=== PATIENT | female | born 1955 ===

== ENCOUNTER 2024-04-04 10:44 | Outpatient (CLI) | payer MEDICARE, SELFPAY ==
--- NOTE | 2024-04-04 10:51 | XR_ITS ---
WS: [id number] Examination: XR hip RT 2-3V wo/w pel* [id number] Reason for Exam: right hip pain Date: 04/04/2024 Comparison: None. Findings: Severe arthritic deformity of the right hip is noted. The joint space is markedly narrowed. There is mild flattening of the lateral femoral head. Large osteophytes of the acetabulum and femoral head are present with sclerosis and cystic change. There is no displaced fracture or dislocation XR/XR hip RT 2-3V wo/w pel* [id number] Impression: Severe arthritic deformity of the right hip is noted.
== END 2024-04-04 10:45 | disposition home or self-care (01) ==
LOC: RAD 10:50
PROVIDERS: PCP Nurse Practitioner Family; Visit Provider Nurse Practitioner Family
DX: M16.11 Unilateral primary osteoarthritis, right hip (principal); M25.751 Osteophyte, right hip
CPT/HCPCS: 73502

== ENCOUNTER → 2024-04-18 08:48 | Outpatient (BNVA) | payer MEDICARE, SELFPAY | PROVIDERS: PCP Nurse Practitioner Family; Visit Provider Specialist | DX: M16.11 Unilateral primary osteoarthritis, right hip (principal) | CPT/HCPCS: 99204 ==

== ENCOUNTER 2024-05-17 13:19 | Outpatient (CLI) | payer MEDICARE, SELFPAY ==
--- NOTE | 2024-05-17 13:21 | XR_ITS ---
WS: [id number] SCREENING DEXA SCAN [facility] CLINICAL INFORMATION: ASYMPTOMATIC MENOPAUSAL STATE COMPARISON: None. FINDINGS: The L1-L4 bone mineral density measures 1.347 g/cm2. This corresponds to a T score score of 1.4 and Z score of 2.3. Left forearm bone mineral density measures 0.84. This corresponds to a T score of -0.3 and Z score of 1.4. Right femoral neck bone mineral density measures 0.995. This corresponds to a T score -0.1 of and Z s core of 0.8. XR/XR DEXA axial skeleton* [id number] IMPRESSION: Normal bone mineralization lumbar spine and RIGHT femoral neck. Normal bone min eralization LEFT forearm. Patient's FRAX calculated 10 year probability for major osteoporotic fracture i s 7.2% and osteoporotic hip fracture is 0.4%.
== END 2024-05-17 13:20 | disposition home or self-care (01) ==
LOC: RAD 13:20
PROVIDERS: PCP Nurse Practitioner Family; Visit Provider Nurse Practitioner Family
DX: Z13.820 Encounter for screening for osteoporosis (principal); Z78.0 Asymptomatic menopausal state
CPT/HCPCS: 77080

== ENCOUNTER 2024-05-30 11:43 | Outpatient (CLI) | payer MEDICARE, SELFPAY ==
[2024-05-30 12:02] LABS: Basophils # 0.1 10^3/uL (0.0-0.1); Basophils % 0.7 %; Eosinophils # 0.6 10^3/uL (0.0-0.8); Lymphocytes # 1.4 10^3/uL (0.8-4.8); Lymphocytes % 20.8 %; Mean Corpuscular HGB Conc 31.2 g/dL (30-55); Mean Corpuscular Hemoglobin 28.4 pg (27-33); Mean Corpuscular Volume 90.9 fl (85-98); Mean Platelet Volume 9.7 fL (7.4-10.4); Monocytes # 0.7 10^3/uL (0.2-0.9); Monocytes % 9.6 %; Neutrophils # 4.04 10^3/uL (1.8-7.7); Neutrophils % 59.6 %; Nucleated Red Blood Cells % 0 %; Platelet Count 287 10^3/cmm (157-399); Red Blood Count 4.51 10^6/uL (3.85-5.65); Red Cell Distribution Width 13.3 % (12.1-15.1); White Blood Count 6.78 10^3/uL (3.29-11.43)
[2024-05-30 12:25] LABS: Alanine Aminotransferase 49 U/L (0-33); Albumin Level 4.2 g/dL (3.5-5.2); Alkaline Phosphatase 144 U/L (35-105); Anion Gap 13.3 (5-19); Aspartate Amino Transferase 39 U/L (0-32); Blood Urea Nitrogen 12 mg/dL (8-23); Calcium 8.9 mg/dL (8.5-10.5); Carbon Dioxide 28 mmol/L (22-29); Chloride 104 mmol/L (98-107); Globulin 3.2 g/dL (1.3-4.6); Glomerular Filtration Rate 83.2 mL/min (90-130); Glucose 99 mg/dL (65-115); Osmolality Calculated 292 mOsm/kg (285-295); Potassium 4.3 mmol/L (3.5-5.1); Sodium 141 mmol/L (136-145); Total Bilirubin 0.3 mg/dL (0.15-1.2); Total Protein 7.4 g/dL (6.6-8.7)
[2024-05-30 13:12] LABS: Bilirubin Urine Negative (Negative); Blood Urine Negative (Negative); Glucose Urine UA Negative (Normal); Ketones Urine Negative (Negative); Leukocyte Esterase Urine Trace (Negative); Nitrate Urine Negative (Negative); Protein Urine Negative (Negative); Specific Gravity, Urine 1.012 (1.005-1.030); Urine Appearance Clear (CLEAR); Urine Color Yellow (Yellow); Urobilinogen Urine 0.2 mg/dL (Negative)
[2024-05-30 13:17] LABS: Add Urine Microscopic? YES; Bacteria Urine None Seen /hpf; Hyaline Casts Urine 0-4 /lpf; RBC Urine 0-2 /hpf (0-2); Squamous Epithelial Cell Urine 0-5 /hpf (0-5); WBC Urine 0-5 /hpf (0-5)
[2024-05-30 13:19] LABS: Add Urine Culture? No
== END 2024-05-30 11:44 | disposition home or self-care (01) ==
LOC: LAB 11:45
PROVIDERS: PCP Nurse Practitioner Family; Visit Provider Specialist
DX: Z01.818 Encounter for other preprocedural examination (principal)
CPT/HCPCS: 36415; 80053; 81001; 85025

== ENCOUNTER → 2024-06-07 09:33 | Outpatient (BNVA) | payer MEDICARE, SELFPAY | PROVIDERS: PCP Nurse Practitioner Family; Visit Provider Family Medicine | DX: Z01.818 Encounter for other preprocedural examination (principal) | CPT/HCPCS: 93005 ==

== ENCOUNTER 2024-06-14 15:24 | Observation (INO) | payer MEDICARE, SELFPAY ==
[2024-06-14] VITALS (14 sets, daily range): BP systolic 104–155; BP diastolic 61–91; PULSE 66–90; RESP 10–21; TEMP 35.6–36.4; O2SAT 95–100; BMI 36.1
[2024-06-14] MEDS: sodium chloride 0.9% 1,000 ML 30 ML IV (11:24)
[2024-06-14] MEDS: gabapentin 300 mg Capsule PO (11:26)
[2024-06-14] MEDS: acetaminophen 1,000 MG/100 ML PIGGYBACK 400 MG IV ×2 (11:26→17:50)
[2024-06-14] MEDS: CELEcoxib 200 mg Capsule 400 MG PO (11:27)
--- NOTE | 2024-06-14 11:56 | W.PM.OPSUD ---
Surgery/Procedure H&P Update DATE OF PROCEDURE: June 14, 2024 DATE H&P PERFORMED: 06/07/24 H&P UPDATE INFORMATION: I have reviewed H&P completed within last 30 days, I have examined patient prior to procedure, No changes to prior documentation and H&P is in [facility] EMR on date indicated PLANNED PROCEDURE: Operation Date: 06/14/24 12:20 Proposed Procedures p Total Hip Arthroplasty(Right) - Cynthia Enriquez MD Related Problem List Diagnoses (1) Primary osteoarthritis of right hip:
--- NOTE | 2024-06-14 12:26 | ANES.PREANE2 ---
Pre-Anesthetic Assessment Height/Weight: Height 1.57 m Weight 87.543 kg Temp Pulse Resp BP Pulse Ox O2 Del Method 97.1 F L 72 16 155/91 97 Room Air 06/14/24 11:04 06/14/24 11:04 06/14/24 11:04 06/14/24 11:04 06/14/24 11:04 06/14/24 11:04 Operation Date: 06/14/24 12:20 Proposed Procedures p Total Hip Arthroplasty(Right) - Cynthia Enriquez MD Familial anesthetic complications: None Was Beta Linda taken within 24 hours: N/A Was Clonidine taken within 24 hours: N/A Last intake: Intake Last Liquid Date 06/13/24 Last Liquid Time 22:00 Last Solid Date 06/13/24 Last Solid Time 18:30 Social No alcohol and No tobacco Exam No alert, No oriented x 3, No clear to auscultation bilaterally and No regular rate & rhythm Airway Mallampati: Class II Dentition: full (permanent dental work in place) Metabolic Thyroid Disease Anesthetic Plan ASA status: 2 Anesthesia: Regional (specify below) Risk of > 500 ml blood loss (7ml/kg in children): Yes, adequate IV access and fluids planned Medications/Allergies Home Medications Medication Instructions Recorded Confirmed Last Taken Type ascorbic acid (vitamin C) 250 mg 250 mg PO DAILY 04/18/24 06/14/24 06/13/24 History tablet calcium-magnesium 750 mg-465 mg 750 tab PO DAILY 04/18/24 06/14/24 06/13/24 History tablet meloxicam 15 mg tablet 15 mg PO DAILY #30 tabs 04/18/24 06/14/24 Unknown Rx multivitamin 1 tab PO DAILY 04/18/24 06/14/24 06/13/24 History vitamin B complex 1 tab PO DAILY 04/18/24 06/14/24 06/13/24 History zinc gluconate 100 mg tablet 100 mg PO DAILY 04/18/24 06/14/24 06/13/24 History thyroid (pork) 60 mg tablet 60 mg PO DAILY 06/07/24 06/14/24 06/13/24 History ([place] Thyroid) Allergies Allergy/AdvReac Type Severity Reaction Status Date / Time No Known Allergies Allergy Verified 06/13/24 11:21 Current Medications Generic Name Dose Route Start Last Admin Trade Name Freq PRN Reason Stop Dose Admin Sodium Chloride 1,000 mls @ 30 mls/hr 06/14/24 10:45 06/14/24 11:24 Sodium Chloride 0.9% IV 06/15/24 10:44 30 mls/hr .Q24H CHRIS Administration PFSH Anesthesia Social History Smoking and tobacco/nicotine status: never used tobacco/nicotine Alcohol intake: current Alcohol intake frequency: few times a month Marital status: Number of children: 2 Data Anesthesia Cardiac Studies: No Data to Display
[2024-06-14] MEDS: ceFAZolin 2,000 mg SDV 2000 MG IVP (13:09)
[2024-06-14] MEDS: tranexamic acid 1,000 mg/10mL SDV 1000 MG IV (13:58)
[2024-06-14] MEDS: ceFAZolin 1,000 mg SDV 1000 MG IRRIGATION (14:16)
[2024-06-14] MEDS: vancomycin 1,000 MG SDV 1000 MG XX (14:17)
--- NOTE | 2024-06-14 16:20 | XRR_ITS ---
PROCEDURE INFORMATION: Exam: XR Pelvis Exam date and time: 06/14/2024 4:23 PM Age: 68 years old Clinical indication: Device placement; Other: Lashell; Prior surgery; Surgery date: Post-operative (0-2 days); Additional info: S/P lashell, low ap pelvis TECHNIQUE: Imaging protocol: Radiologic exam of the pelvis. Views: 1 or 2 view. COMPARISON: CR XR hip RT 2-3V wo/w pel* [id number] 04/04/2024 10:56 AM FINDINGS: Tubes, catheters and devices: Hardware appears intact without complication. Bones/joints: Bilateral total hip arthroplasties. Anatomic alignment. No periprosthetic fracture. Soft tissues: Subcutaneous gas and skin closure letha overlying the right hip, compatible with recent prior surgery. XR/XR pelvis 1-2V* [id number] IMPRESSION: Bilateral total hip arthroplasties without apparent complication.
--- NOTE | 2024-06-14 16:32 | P.OP_ITS ---
Operative Report Date of procedure: June 14, 2024 Pre-op diagnosis: Severe degenerative osteoarthritis right hip Post-op diagnosis: Severe degenerative osteoarthritis right hip Post-op findings: Severe degenerative osteoarthritis with large osteophytes Procedure done: Right total hip arthroplasty Implants: The [place] total hip system with a size 52 mm by E alpha code Trident II Tritanium solid back acetabular shell and an MDM liner size 42 mm inner diameter by E alpha code.? A size 4 Accolade II 127? neck angle hip stem with a size 28 mm x +0 mm femoral head and a christian MDM X3 insert size 42E Specimens removed/disposition: Bone, disposed of Surgeon: Cynthia Enriquez MD Manager Retirement: Neeru Flores Manager Retirement: Services of the nurse practitioner regional administrative assistant were required for positioning, manipulation of the leg during the surgical procedure, retraction, and completion of the surgical procedure. Anesthesia: General (Intubated following conversion from spinal with MAC prior to beginning the surgical procedure, ASA 2) Estimated blood loss (mL): 260 IV fluids (mL): 1,500 Urine output (mL): 350 Complications: None Findings: Severe degenerative osteoarthritis with large osteophytes. Hip was stable at 90 degrees of flexion with 80 degrees of internal rotation and 30 degrees of adduction. It was also stable to toe hang and external rotation Condition: stable Disposition: PACU (Then to floor for postoperative rehabilitation and pain management) Brief History: This 68-year-old woman presents to the clinic for evaluation of right hip pain. The patient discussed having pain for approximately 3 years and was ambulating with a cane for longer distances or on uneven surfaces. Patient had significant limitations in her activities of daily living. She had taken anti- inflammatories as well as prednisone. Patient had a left total hip arthroplasty in [place] in 2014, and did well following that. Current pain is in the groin and sometimes into her back. Patient wished to proceed with right total hip a rthroplasty. Risks and complications were discussed with her, and consents were signed. Procedure: Patient was brought to the operating theater.? She was transferred to the operating room table and subsequently administered a spinal anesthesia with MAC, ASA 2, but this was converted to a general anesthesia secondary to the patient having coughing while in a full lateral position, and there was concern for possible aspiration risk.? Following administration of adequate anesthesia, the patient was placed in full lateral position and held in position with a pegboard.? The patient's right lower extremity was then prepped and draped in usual fashion utilizing DuraPrep.? It was draped free.? Following prepping and draping, a surgical pause was performed.? At the time of surgical pause, we identified the site and side of surgery.? We also identified the patient and preoperative surgical markings.? Additionally, leg lengths were marked after draping.? Confirmation was made of equipment availability.? The patient's preoperative IV antibiotic, Ancef 2 g, and TXA administration was confirmed as well.? X-rays were also reviewed. Following the surgical pause, an incision was made centering over the patient's greater trochanter continuing proximally and distally as necessary to allow access to the hip joint.? Dissection continued through skin and soft tissues using a scalpel, and hemostasis was obtained using electrocautery. The tensor fascia hernan was identified and incised longitudinally, and the tensor fascia hernan was noted to be very tight. Exposure was difficult secondary to this. The patient also was large in the subcutaneous tissues of the thigh making exposure extremely difficult as well. Sciatic nerve was identified and protected throughout the surgical procedure.? A Charnley U retractor was placed after the tensor fascia hernan had been incised longitudinally, and the sciatic nerve had been identified.? The hip was internally rotated, and the piriformis muscle was identified and tagged. Piriformis muscle along with the remaining short external rotators were then incised from the posterior aspect of the hip joint.? These were retracted posteriorly.? The capsule was entered in a T-type fashion with the edges being tagged. Posterior osteophytes were removed from the acetabulum, and subsequently the hip was dislocated.? Following hip dislocation, a femoral neck osteotomy was accomplished in the appropriate position.? The head was measured, but it was quite deformed.? Subsequently, it was disposed of.? We then evaluated the acetabulum. The femur was retracted anteriorly.? Soft tissues were retracted, and the labrum was removed.? We then began reaming.? Once the femoral head was removed, there was noted to be significant loss of cartilage over the head with the previously noted deformity and within the acetabulum.? We reamed to a size 51mm to allow for a size 52 mm acetabular shell.? The acetabular component, solid back shell, was impacted into position. The cup was stable. The MDM liner was then impacted into position with care being taken to assure it seated appropriately.? It was noted that the acetabular component matched the bony anatomy.? The cup was noted to seat nicely and had good fixation upon impact. Attention was directed to the proximal femur.? The proximal femur was lifted out of the wound.? A canal finder was passed after the box chisel. We then began broaching. We broached sequentially and had excellent fit and fill with the size 4 broach. ? A trial reduction was attempted with a +0 mm femoral head.? With this construct, the hip was stable, and leg length was felt to be equal.? With this in place, we had the above stabilities.? This was felt to be excellent stability. Therefore, trial components were removed after the hip was dislocated.? The size 4 Accolade II 127? neck angle stem was impacted into position without difficulty and onto this was placed a +0 mm x 28 mm femoral head which had been assembled into the MDM insert size 42E.? With a +0 mm femoral head, we had the above-noted stability.? The stem was noted to seat nicely prior to placement of the femoral head.? The wound was copiously irrigated with 20 mL of Betadine and 500 mL of normal saline mixed together.? Subsequently, we suctioned this out and irrigated the wound copiously with lactated Ringer's.? At this time, with all components in appropriate position, the hip was reduced.? Following reduction of the prosthesis once again, we confirmed the stability of the hip.? Leg lengths were also felt to be satisfactory. Being satisfied with the prosthesis, attention was directed to closure.? Closure was accomplished with 0 Vicryl in the capsular tissues.? Piriformis was reattached with 0 Vicryl as well.? Tensor fascia hernan was closed with 0 Vicryl in an interrupted fashion.? The subcutaneous tissues were closed with a combination of 0 Vicryl and 2-0 Monocryl. Vancomycin powder and a Gelfoam thrombin mixture was placed into the wound as well.? The skin was closed with skin letha followed by Silverlon dressing.? The patient was placed in an abduction pillow.? She was returned the Recovery Room in a satisfactory condition and will be discharged to the floor for postoperative rehabilitation and pain management.? There were no complications or specimens. Related Problem List Diagnoses (1) Primary osteoarthritis of right hip:
[2024-06-14] MEDS: iron polysaccharide complex 150 mg Capsule PO (17:50)
[2024-06-14] MEDS: calcium carbonate 500 mg Chew Tablet 1000 MG PO (17:50)
[2024-06-14] MEDS: sennosides-docusate Tablet 2 TAB PO (17:50)
[2024-06-14] MEDS: chlorhexidine gluconate 0.12% Btl 473 mL 30 ML MUCOUS MEM ×2 (17:50→21:14)
[2024-06-14] MEDS: mupirocin oint 22 gm 1 APPLIC NASAL (17:51)
[2024-06-14] MEDS: oxyCODONE 5 mg IR Tab/Cap PO (19:55)
[2024-06-14] MEDS: ceFAZolin 2,000 MG in sodium chloride 0.9% (100 ml) 100 ML 200 MG IV (21:13)
[2024-06-14] MEDS: tranexamic acid 1,000 MG/100 ML PREMIX 600 MG IV (23:01)
[2024-06-14] MEDS: ondansetron 2 mg/ML SDV 2 mL 4 MG IVP (23:16)
[2024-06-15] VITALS (8 sets, daily range): BP systolic 100–133; BP diastolic 53–76; PULSE 67–94; RESP 16–18; TEMP 36.4–36.9; O2SAT 90–94
[2024-06-15] MEDS: acetaminophen 1,000 MG/100 ML PIGGYBACK 400 MG IV (00:46)
[2024-06-15 03:41] LABS: Basophils % 0.2 %; Hematocrit 34.1 % (36-47); Lymphocytes # 0.6 10^3/uL (0.8-4.8); Lymphocytes % 4.5 %; Mean Corpuscular HGB Conc 32.3 g/dL (30-55); Mean Corpuscular Hemoglobin 29.3 pg (27-33); Mean Corpuscular Volume 90.9 fl (85-98); Mean Platelet Volume 10.1 fL (7.4-10.4); Monocytes # 0.6 10^3/uL (0.2-0.9); Monocytes % 4.4 %; Neutrophils # 12.02 10^3/uL (1.8-7.7); Neutrophils % 90.4 %; Nucleated Red Blood Cells % 0 %; Platelet Count 268 10^3/cmm (157-399); Red Blood Count 3.75 10^6/uL (3.85-5.65); Red Cell Distribution Width 13.5 % (12.1-15.1); White Blood Count 13.29 10^3/uL (3.29-11.43)
[2024-06-15 04:05] LABS: Anion Gap 16.2 (5-19); Blood Urea Nitrogen 15 mg/dL (8-23); Calcium 8.7 mg/dL (8.5-10.5); Carbon Dioxide 23 mmol/L (22-29); Chloride 103 mmol/L (98-107); Creatinine Clr Calc Pharmacy 69.9542; Glomerular Filtration Rate 71.3 mL/min (90-130); Glucose 152 mg/dL (65-115); Osmolality Calculated 288 mOsm/kg (285-295); Potassium 5.2 mmol/L (3.5-5.1); Sodium 137 mmol/L (136-145)
[2024-06-15] MEDS: ceFAZolin 2,000 MG in sodium chloride 0.9% (100 ml) 100 ML 200 MG IV ×2 (04:42→16:06)
[2024-06-15] MEDS: oxyCODONE 5 mg IR Tab/Cap PO (06:12)
[2024-06-15] MEDS: calcium carbonate 500 mg Chew Tablet 1000 MG PO ×2 (09:46→18:02)
[2024-06-15] MEDS: meloxicam 7.5 mg tablet 15 MG PO (09:46)
--- NOTE | 2024-06-15 09:48 | PC.CHAP ---
Pastoral Care Encounter/Spiritual Assessment Type of Contact [] Declined button cutting machine operator visit [] Patient/Family/Request visit [] Outpatient visit [] Follow-up visit [] Physician referral [] Code/Alert [] Routine visit [] Staff referral [] Actively dying [] Patient sleeping [] Family support [] [] Out of room [] Palliative care [] [x] Receiving care in room [] Pre-surgical visit [] Trauma [] Long length of stay [] ICU visit [] Other: Relational/Emotional Strength [] Patient feels connected with others/family/visitors/staff [] Distress [] Loneliness/isolation [] Abandonment Spirituality of Patient [] Person of Lucila [] Attends Latter Day of their Lucila [] Believes in Prayer [] Reads Bible or Caodaism materials [] There are Spiritual issues to be addressed Dean Interventions [] Prayer [] Active listening [] Non-anxious presence [] Spiritual/emotional support [] Crisis/trauma care [] Spiritual counseling [] Bereavement support [] Provided bereavement packet [] Provided Bible/devotional materials [] Provided toy/stuffed animal, coloring book to patient or family member [] Provided Communion [] Anointing/[place] [] Salvation [] Completed spiritual assessment [] Other: Impact on Illness or Injury [] Angry [] Fearful [] Anxious [] Often cries [] Exhaustion [] Unable to work [] Unable to attend oriental orthodox [] Unable to walk/stand [] Unable to read [] Unable to drive [] Unable to eat/drink [] Unable to sleep [] Unable to be with family [] Patient intubated [] Other: Summary Time spent with patient
[2024-06-15] MEDS: cholecalciferol (vitamin D3) 1,000 unit Tablet 1000 UNIT PO (09:52)
[2024-06-15] MEDS: aspirin 325 mg EC Tablet PO (09:52)
[2024-06-15] MEDS: multivitamin therapeutic Tablet 1 TAB PO (09:52)
[2024-06-15] MEDS: iron polysaccharide complex 150 mg Capsule PO (09:52)
[2024-06-15] MEDS: mupirocin oint 22 gm 1 APPLIC NASAL (09:54)
[2024-06-15] MEDS: sodium chloride 0.9% 500 ML 999 ML IV ×2 (11:49→14:18)
--- NOTE | 2024-06-15 13:55 | PM.DCS ---
Discharge Providers Date of Admission: 06/14/24 15:24 Date of Discharge: June 15, 2024 Attending Provider at Admission: Cynthia Enriquez MD Attending Provider at Discharge: Cynthia Enriquez MD Primary Care Provider: KENTON Mansfield Diagnoses at Discharge Discharge Diagnosis (1) Primary osteoarthritis of right hip: Status: Acute Reason for Visit Reason for Visit: M16.11 Physical Exam Urinary Catheter Management: Pierre: Cath Placed During This Visit: yes, but has since been removed by the nurse Reason for Continuing Indwelling Catheter: Does Not Meet Criteria Date Urinary Catheter Removed: 06/15/24 Time Urinary Catheter Discontinued: 06:00 Discharge Data Studies Completed and Pending Completed Studies During Hospitalization Category Date Time Status XR pelvis 1-2V* [id number] Routine Exams 06/14/24 16:20 Completed Radiology Impressions Pelvis X-Ray 06/14/24 16:20 IMPRESSION: Bilateral total hip arthroplasties without apparent complication. Laboratory Results WBC 13.29 10^3/uL (3.29-11.43) H 06/15/24 03:24 RBC 3.75 10^6/uL (3.85-5.65) L 06/15/24 03:24 Hgb 11.00 g/dL (11.27-16.99) L 06/15/24 03:24 Hct 34.1 % (36-47) L 06/15/24 03:24 MCV 90.9 fl (85-98) 06/15/24 03:24 MCH 29.3 pg (27-33) 06/15/24 03:24 MCHC 32.3 g/dL (30-55) 06/15/24 03:24 RDW 13.5 % (12.1-15.1) 06/15/24 03:24 Plt Count 268 10^3/cmm (157-399) 06/15/24 03:24 MPV 10.1 fL (7.4-10.4) 06/15/24 03:24 Neut % (Auto) 90.4 % 06/15/24 03:24 Lymph % (Auto) 4.5 % 06/15/24 03:24 [place] % (Auto) 4.4 % 06/15/24 03:24 Eos % (Auto) 0.0 % 06/15/24 03:24 Baso % (Auto) 0.2 % 06/15/24 03:24 Neut # (Auto) 12.02 10^3/uL (1.8-7.7) H 06/15/24 03:24 Lymph # (Auto) 0.6 10^3/uL (0.8-4.8) L 06/15/24 03:24 [place] # (Auto) 0.6 10^3/uL (0.2-0.9) 06/15/24 03:24 Eos # (Auto) 0.0 10^3/uL (0.0-0.8) 06/15/24 03:24 Baso # (Auto) 0.0 10^3/uL (0.0-0.1) 06/15/24 03:24 Nucleated RBC % (auto) 0 % 06/15/24 03:24 Nucleated RBCs # 0.0 /100WBC 06/15/24 03:24 Sodium 137 mmol/L (136-145) 06/15/24 03:24 Potassium 5.2 mmol/L (3.5-5.1) H 06/15/24 03:24 Chloride 103 mmol/L (98-107) 06/15/24 03:24 Carbon Dioxide 23 mmol/L (22-29) 06/15/24 03:24 Anion Gap 16.2 (5-19) 06/15/24 03:24 BUN 15 mg/dL (8-23) 06/15/24 03:24 Creatinine 0.8 mg/dL (0.5-0.9) 06/15/24 03:24 GFR Calculation 71.3 mL/min (90-130) L 06/15/24 03:24 Glucose 152 mg/dL (65-115) H 06/15/24 03:24 Calculated Osmolality 288 mOsm/kg (285-295) 06/15/24 03:24 Calcium 8.7 mg/dL (8.5-10.5) 06/15/24 03:24 Vitals Last Vital Signs Temp 98.4 F 06/15/24 11:56 Pulse 74 06/15/24 11:56 Resp 18 06/15/24 11:56 BP 105/70 06/15/24 11:56 Pulse Ox 91 06/15/24 11:56 O2 Del Method Room Air 06/15/24 11:56 O2 Flow Rate 8 06/14/24 16:25 Discharge Plan Discharge Patient Disposition: Home Health Service Condition: Stable Prescriptions: New oxycodone 5 mg Tablet 5 - 10 mg PO Q4H PRN (Reason: Moderate To Severe Pain) 7 Days Qty: 40 0RF aspirin 325 mg Tablet,Delayed Release (Dr/Ec) 325 mg PO DAILY 30 Days Qty: 30 0RF acetaminophen 500 mg Tablet 1,000 mg PO Q8H 15 Days Qty: 90 0RF Continued calcium-magnesium 750-465 mg tablet 750 tab PO DAILY multivitamin Tablet 1 tab PO DAILY vitamin B complex Tablet 1 tab PO DAILY ascorbic acid (vitamin C) 250 mg tablet 250 mg PO DAILY zinc gluconate 100 mg tablet 100 mg PO DAILY meloxicam 15 mg tablet 15 mg PO DAILY Qty: 30 0RF thyroid (pork) [[place] Thyroid] 60 mg tablet 60 mg PO DAILY Referrals: Cynthia Enriquez MD [Physician] - 06/27/24 11:15 am Discharge Diet: Advance as tolerated and Usual diet Discharge Activity: Increase activity as tolerated, Limit activity as instructed, Use walker/crutches as instructed and As per PT/OT instructions Patient Instructions: Acute Wound Care (DC), Opioid Safety, Post Anesthesia Care Activity Restrictions/Additional Instructions: Weightbearing as tolerated. Posterior hip precautions. Ambulation and gait training per physical therapy. You may shower, but do not soak your hip in water. Coding Level of Care Code Acute Code for [facility] Fwd Diagnoses Primary osteoarthritis of right hip M16.11
[2024-06-15] MEDS: ondansetron 2 mg/ML SDV 2 mL 4 MG IVP (14:29)
[2024-06-15] MEDS: TRAMadol 50 mg Tablet PO (15:37)
--- NOTE | 2024-06-15 17:33 | P.PN_ITS ---
Subjective 2 Subjective: Patient had episodic orthostatic hypotension today. For this reason, she was given fluid bolus and she will be maintained in the hospital overnight so that she can receive IV fluids and physical therapy in the morning. Medications: Reviewed: Yes Vitals/I&O/Wt Last Vital Signs Temp 98.4 F 06/15/24 11:56 Pulse 74 06/15/24 11:56 Resp 18 06/15/24 11:56 BP 105/70 06/15/24 11:56 Pulse Ox 91 06/15/24 11:56 O2 Del Method Room Air 06/15/24 11:56 O2 Flow Rate 8 06/14/24 16:25 06/15/24 06/15/24 06/15/24 06:59 14:59 22:59 Intake Total 540 / 2410 1220 / 1220 Output Total 150 / 1860 Balance 390 / 550 1220 / 1220 Weight last 48 hrs Weight 199 lb 11.2 oz Weight 197 lb 3.2 oz Weight 193 lb Physical Exam 2 Const: COMMON NORMALS: no acute distress, average body habitus, patient oriented x3 and alert GENERAL APPEARANCE: cooperative and comfortable O RIENTATION/CONSCIOUSNESS: Yes awake HENMT: COMMON NORMALS: normocephalic and atraumatic HEAD & SCALP: n ormocephalic and atraumatic Eye: GENERAL EYE: appearance normal, both eyes and all related structures Chest: COMMONS NORMALS: normal inspection of the chest Resp: COMMON NORMALS: normal respiratory effort EFFORT & INSPECTION: Yes able to speak in complete sentences and Yes symmetric chest movement Extremity: RIGHT LOWER EXTREMITY: Yes hip joint (I is soft and nontender.) Right hip: Yes ROM (Not evaluated.) and Yes neurovascular exam (Intact distally.) Neuro: COMMON NORMALS: patient oriented x3 SENSORIUM/ORIENTATION: Yes alert Psych: COMMON NORMALS: mental status grossly normal APPEARANCE: Yes grossly normal ATTITUDE: Yes calm and Yes engaged ATTENTION/CONCENTRATION: Yes attention grossly intact Skin: COMMON NORMALS: no rashes or lesions noted GENERAL SKIN EXAM: no rashes or lesions noted Urinary Catheter Management: Pierre: Cath Placed During This Visit: yes, but has since been removed by the nurse Reason for Continuing Indwelling Catheter: Does Not Meet Criteria Date Urinary Catheter Removed: 06/15/24 Time Urinary Catheter Discontinued: 06:00 Data 06/15/24 03:24 06/15/24 03:24 A&P Assessment and plan (1) Primary osteoarthritis of right hip: Patient was unable to participate aggressively in physical therapy today secondary to orthostatic hypotension. She will be maintained of so that she can participate with therapy tomorrow. She is neurologically intact and pain is well-managed. Adjustment will also be made in pain medication in hopes of allowing her to better participate with therapies. Attestations 2 Medical Necessity Statement*: Patient requires ongoing hospitalization for orthostatic hypotension following right total hip arthroplasty Coding Level of Care Code Acute Code for [facility] Fwd Diagnoses Primary osteoarthritis of right hip M16.11
[2024-06-15] MEDS: acetaminophen 500 mg Tablet 1000 MG PO (23:29)
[2024-06-16 04:03] VITALS: BP 96/58; PULSE 81; RESP 16; TEMP 36.8; O2SAT 94
[2024-06-16 07:45] VITALS: BP 110/54; PULSE 89; RESP 18; TEMP 37.2; O2SAT 93
[2024-06-16] MEDS: TRAMadol 50 mg Tablet PO (10:14)
[2024-06-16] MEDS: acetaminophen 500 mg Tablet 1000 MG PO (10:14)
[2024-06-16] MEDS: meloxicam 7.5 mg tablet 15 MG PO (10:15)
[2024-06-16] MEDS: aspirin 325 mg EC Tablet PO (10:15)
--- NOTE | 2024-06-16 11:12 | PM.DCS ---
Discharge Providers Date of Admission: 06/14/24 15:24 Date of Discharge: June 16, 2024 Attending Provider at Admission: Cynthia Enriquez MD Attending Provider at Discharge: Cynthia Enriquez MD Primary Care Provider: KENTON Mansfield Diagnoses at Discharge Discharge Diagnosis (1) S/P total right hip arthroplasty: Status: Acute Permanent problem details: Date of procedure: June 14, 2024 Pre-op diagnosis: Severe degenerative osteoarthritis right hip Procedure done: Right total hip arthroplasty Implants: The Jessica total hip system with a size 52 mm by E alpha code Trident II Tritanium solid back acetabular shell and an MDM liner size 42 mm inner diameter by E alpha code. A size 4 Accolade II 127? neck angle hip stem with a size 28 mm x +0 mm femoral head and a baptist MDM X3 insert size [id number] Surgeon: Cynthia Enriquez MD (2) Primary osteoarthritis of right hip: Status: Chronic Reason for Visit Reason for Visit: M16.11 Brief History: This 68-year-old woman presents to the clinic for evaluation of right hip pain. The patient discussed having pain for approximately 3 years and was ambulating with a cane for longer distances or on uneven surfaces. Patient had significant limitations in her activities of daily living. She had taken anti-inflammatories as well as prednisone. Patient had a left total hip arthroplasty in [place] in 2014, and did well following that. Current pain is in the groin and sometimes into her back. Patient wished to proceed with right total hip arthroplasty. Risks and complications were discussed with her, and consents were signed. Patient was taken for RIGHT total hip arthroplasty on 06/14/2024 and tolerated procedure well. Hospital Course Hospital Course Patient was admitted under observation status following right total hip arthroplasty. She tolerated the procedure well. Postoperatively, she did have a decrease in her blood pressure, but this responded nicely to treatment. Kept 2 nights for monitoring. There was no evidence of DVT. Neurologically she was intact. Her thigh was soft and nontender. Plans were made for her discharge to home with home health. She will participate with therapies as tolerated. Physical Exam Const: COMMON NORMALS: no acute distress, average body habitus, patient oriented x3 and alert GENERAL APPEARANCE: cooperative and comfortable ORIENTATION/CONSCIOUSNESS: Yes awake HENMT: COMMON NORMALS: normocephalic and atraumatic HEAD & SCALP: normocephalic and atraumatic Eye: GENERAL EYE: appearance normal, both eyes and all related structures Chest: COMMONS NORMALS: normal inspection of the chest Resp: COMMON NORMALS: normal respiratory effort EFFORT & INSPECTION: Yes able to speak in complete sentences and Yes symmetric chest movement Extremity: RIGHT LOWER EXTREMITY: Yes hip joint Right hip: Yes inspection (Mild bruising. No skin breakdown or swelling. ), Yes palpation (Mild TTP to incision. ), Yes ROM (Not evaluated. Up with PT. ) and Yes neurovascular exam (Sensation intact to light touch. Rapid cap refill. 2+ DP/PT pulses. ) and Yes lower leg (Calf soft and non-tender. No erythema. Mild swelling, ANGEL ) Right lower leg: Yes special tests Right lower leg special tests: Cem's sign: Negative Neuro: COMMON NORMALS: patient oriented x3 SENSORIUM/ORIENTATION: Yes alert Psych: COMMON NORMALS: mental status grossly normal APPEARANCE: Yes grossly normal ATTITUDE: Yes calm and Yes engaged ATTENTION/CONCENTRATION: Yes attention grossly intact Skin: COMMON NORMALS: no rashes or lesions noted GENERAL SKIN EXAM: no rashes or lesions noted Urinary Catheter Management: Pierre: Cath Placed During This Visit: yes, but has since been removed by the nurse Reason for Continuing Indwelling Catheter: Decision to DC Catheter Date Urinary Catheter Removed: 06/15/24 Time Urinary Catheter Discontinued: 07:40 Discharge Data Studies Completed and Pending Completed Studies During Hospitalization Category Date Time Status XR pelvis 1-2V* [id number] Routine Exams 06/14/24 16:20 Completed Radiology Impressions Pelvis X-Ray 06/14/24 16:20 IMPRESSION: Bilateral total hip arthroplasties without apparent complication. Laboratory Results WBC 13.29 10^3/uL (3.29-11.43) H 06/15/24 03:24 RBC 3.75 10^6/uL (3.85-5.65) L 06/15/24 03:24 Hgb 11.00 g/dL (11.27-16.99) L 06/15/24 03:24 Hct 34.1 % (36-47) L 06/15/24 03:24 MCV 90.9 fl (85-98) 06/15/24 03:24 MCH 29.3 pg (27-33) 06/15/24 03:24 MCHC 32.3 g/dL (30-55) 06/15/24 03:24 RDW 13.5 % (12.1-15.1) 06/15/24 03:24 Plt Count 268 10^3/cmm (157-399) 06/15/24 03:24 MPV 10.1 fL (7.4-10.4) 06/15/24 03:24 Neut % (Auto) 90.4 % 06/15/24 03:24 Lymph % (Auto) 4.5 % 06/15/24 03:24 [place] % (Auto) 4.4 % 06/15/24 03:24 Eos % (Auto) 0.0 % 06/15/24 03:24 Baso % (Auto) 0.2 % 06/15/24 03:24 Neut # (Auto) 12.02 10^3/uL (1.8-7.7) H 06/15/24 03:24 Lymph # (Auto) 0.6 10^3/uL (0.8-4.8) L 06/15/24 03:24 [place] # (Auto) 0.6 10^3/uL (0.2-0.9) 06/15/24 03:24 Eos # (Auto) 0.0 10^3/uL (0.0-0.8) 06/15/24 03:24 Baso # (Auto) 0.0 10^3/uL (0.0-0.1) 06/15/24 03:24 Nucleated RBC % (auto) 0 % 06/15/24 03:24 Nucleated RBCs # 0.0 /100WBC 06/15/24 03:24 Sodium 137 mmol/L (136-145) 06/15/24 03:24 Potassium 5.2 mmol/L (3.5-5.1) H 06/15/24 03:24 Chloride 103 mmol/L (98-107) 06/15/24 03:24 Carbon Dioxide 23 mmol/L (22-29) 06/15/24 03:24 Anion Gap 16.2 (5-19) 06/15/24 03:24 BUN 15 mg/dL (8-23) 06/15/24 03:24 Creatinine 0.8 mg/dL (0.5-0.9) 06/15/24 03:24 GFR Calculation 71.3 mL/min (90-130) L 06/15/24 03:24 Glucose 152 mg/dL (65-115) H 06/15/24 03:24 Calculated Osmolality 288 mOsm/kg (285-295) 06/15/24 03:24 Calcium 8.7 mg/dL (8.5-10.5) 06/15/24 03:24 Vitals Last Vital Signs Temp 98.9 F 06/16/24 07:45 Pulse 89 06/16/24 07:45 Resp 18 06/16/24 07:45 BP 110/54 06/16/24 07:45 Pulse Ox 93 06/16/24 07:45 O2 Del Method Room Air 06/16/24 07:45 O2 Flow Rate 8 06/14/24 16:25 Discharge Plan Discharge Patient Disposition: Home Health Service Condition: Stable Prescriptions: New acetaminophen 500 mg Tablet 1,000 mg PO Q8H 15 Days Qty: 90 0RF aspirin 325 mg Tablet,Delayed Release (Dr/Ec) 325 mg PO DAILY 30 Days Qty: 30 0RF oxycodone 5 mg Tablet 5 - 10 mg PO Q4H PRN (Reason: Moderate To Severe Pain) 7 Days Qty: 40 0RF Continued calcium-magnesium 750-465 mg tablet 750 tab PO DAILY multivitamin Tablet 1 tab PO DAILY vitamin B complex Tablet 1 tab PO DAILY ascorbic acid (vitamin C) 250 mg tablet 250 mg PO DAILY zinc gluconate 100 mg tablet 100 mg PO DAILY meloxicam 15 mg tablet 15 mg PO DAILY Qty: 30 0RF thyroid (pork) [[place] Thyroid] 60 mg tablet 60 mg PO DAILY Discharge Orders: Discharge Order (Routine); Ordered 06/16/24 Ordered By: Neeru Flores Referrals: [facility] [Outside] Cynthia Enriquez MD [Physician] - 06/27/24 11:15 am Discharge Diet: Advance as tolerated and Usual diet Discharge Activity: Increase activity as tolerated, Limit activity as instructed, Use walker/crutches as instructed and As per PT/OT instructions Patient Instructions: Acetaminophen (By mouth), Aspirin (By mouth), Oxycodone, Rapid Release (By mouth), Acute Wound Care (DC), Total Hip Replacement (GEN), Joint Replacement Stoplight, Opioid Safety, Post Anesthesia Care Activity Restrictions/Additional Instructions: Weightbearing as tolerated. Continue posterior hip precautions. Ambulation and gait training per physical therapy. You may shower, with running water and soap, but do not soak your hip in water. Medications as needed for pain. Contact our office with any questions or concerns. Discharge Attestations Time Spent in Discharge Care*: greater than 30 min Quality Metrics Clinical Quality Measures [ No reported AMI, CVA or VTE this stay] Coding Level of Care Code Acute Code for [facility] Fwd Diagnoses S/P total right hip arthroplasty Z96.641 Primary osteoarthritis of right hip M16.11
[2024-06-16 11:44] VITALS: BP 106/61; PULSE 84; RESP 18; TEMP 36.9; O2SAT 99
--- NOTE | 2024-06-16 11:53 | PC.OT ---
OT TREATMENT HELD DUE TO SCHEDULED PATIENT D/C
[2024-06-16 13:26] VITALS: BP 106/61; PULSE 84; RESP 18; TEMP 36.9; O2SAT 99
== END 2024-06-16 13:27 | disposition home health service (06) ==
LOC: MEDSURG 15:24
PROVIDERS: Admitting Provider Specialist; PCP Nurse Practitioner Family; Visit Provider Specialist
PROC: (CPT 27130; principal; 2024-06-14 12:20)
DX: M16.11 Unilateral primary osteoarthritis, right hip (principal); M25.751 Osteophyte, right hip
CPT/HCPCS: 27130; 36415; 72170; 80048; 85025; 97110; 97116; 97162; 97167; 97530; C1776; G0378; J0131; J0171; J0690; J1100; J2250; J2371; J2405; J2704; J3370; J7030; J7040

== ENCOUNTER → 2024-06-27 11:06 | Outpatient (BNVA) | payer MEDICARE, SELFPAY | PROVIDERS: PCP Nurse Practitioner Family; Visit Provider Specialist | DX: Z96.641 Presence of right artificial hip joint (principal) | CPT/HCPCS: 73502; 99024 ==

== ENCOUNTER → 2024-07-25 10:38 | Outpatient (BNVA) | payer MEDICARE, SELFPAY | PROVIDERS: PCP Nurse Practitioner Family; Visit Provider Specialist | DX: Z96.641 Presence of right artificial hip joint (principal); M16.11 Unilateral primary osteoarthritis, right hip | CPT/HCPCS: 73502; 99024 ==

== ENCOUNTER → 2024-10-24 10:54 | Outpatient (BNVA) | payer MEDICARE, SELFPAY | PROVIDERS: PCP Nurse Practitioner Family; Referring Provider Specialist; Visit Provider Nurse Practitioner | DX: Z96.641 Presence of right artificial hip joint (principal) | CPT/HCPCS: 99213 ==

== ENCOUNTER → 2025-06-14 10:03 | Outpatient (BNVA) | payer MEDICARE, SELFPAY | PROVIDERS: PCP Nurse Practitioner Family; Visit Provider Nurse Practitioner | DX: Z98.890 Other specified postprocedural states (principal); Z96.641 Presence of right artificial hip joint | CPT/HCPCS: 73502; 99024; 99214 ==